=== PATIENT | female | born 1965 | race Caucasian/White ===

== ENCOUNTER 2016-12-13 09:43 | Outpatient (CLI) | payer OTHER ==
--- NOTE | 2016-12-14 16:54 | Mammography Report ---
DIGITAL SCREENING MAMMOGRAM: 12/13/2016 CLINICAL INDICATION: A 51-year-old, for screening. COMPARISON: 11/2015, 01/2014, 03/2012, 07/2010. TECHNIQUE: Routine CC and MLO projections were obtained of the breasts. FINDINGS: Parenchymal tissue within both breasts is heterogeneously dense, which may lower the sensi tivity of mammography; however, there are no dominant masses, suspicious microcalcifications, or seco ndary signs of malignancy. In comparison to the previous studies, there are no significant changes. ASSESSMENT: NO MAMMOGRAPHIC EVIDENCE OF MALIGNANCY. NO SIGNIFICANT INTERVAL CHANGES. RECOMMENDATION: Screening mammography is recommended annually. BIRADS category 1 - negative. STANDARD QUALIFYING STATEMENTS 1. This examination was reviewed with the aid of Computed-Aided Detection (CAD). 2. A negative or benign imaging report should not delay biopsy if clinically suspicious findings are present. Consider surgical consultation if warranted. More than 5% of cancers are not identified by i maging. 3. Dense breasts may obscure an underlying neoplasm. JOB #: [id number] EXT JOB #:[id number]
== END 2016-12-13 09:44 | disposition home or self-care (01) ==
LOC: DI 09:43
PROVIDERS: ATTEND Physician Assistant Medical
DX: Z12.31 Encounter for screening mammogram for malignant neoplasm of breast (principal)
CPT/HCPCS: 77067

== ENCOUNTER 2017-12-10 14:08 | Outpatient (CLI) | payer OTHER ==
[2017-12-10 14:41] LABS: BASOPHILS % (AUTO) 0.5 %; EOSINOPHILS # (AUTO) 0.3 10^3/uL (0.0-0.7); EOSINOPHILS % (AUTO) 3.3 %; HGB - HEMOGLOBIN 12.9 g/dL (12.0-16.0); LYMPHOCYTES # (AUTO) 2.3 10^3/uL (1.5-3.5); LYMPHOCYTES % (AUTO) 30.1 %; MEAN CORPUSCULAR HEMOGLOBIN 28.8 pg (27.0-31.0); MEAN CORPUSCULAR HGB CONC 33.3 g/dL (32.0-36.0); MEAN CORPUSCULAR VOLUME 86.6 fL (81.0-99.0); MEAN PLATELET VOLUME 7.1 fL (7.9-10.8); MONOCYTES # (AUTO) 0.7 10^3/uL (0.0-1.0); MONOCYTES % (AUTO) 8.4 %; NEUTROPHILS # (AUTO) 4.5 10^3/uL (1.5-6.6); NEUTROPHILS % (AUTO) 57.7 %; PLT - PLATELET COUNT 336 10^3/uL (130-450); RED BLOOD COUNT 4.47 10^6/uL (4.20-5.40); RED CELL DISTRIBUTION WIDTH 13.4 % (12.0-15.0); WHITE BLOOD COUNT 7.7 x10^3/uL (4.8-10.8)
[2017-12-10 15:02] LABS: ALBUMIN 3.9 g/dL (3.2-5.5); BILIRUBIN,DIRECT 0.1 mg/dL (0.1-0.5); BILIRUBIN,TOTAL 0.4 mg/dL (0.2-1.0); CREATININE 0.7 mg/dL (0.4-1.0); TOTAL PROTEIN 7.5 g/dL (6.7-8.2)
== END 2017-12-10 14:09 | disposition home or self-care (01) ==
LOC: LAB 14:08
PROVIDERS: ATTEND Podiatrist
DX: B35.1 Tinea unguium (principal); B35.3 Tinea pedis
CPT/HCPCS: 36415; 80076; 82565; 84520; 85025

== ENCOUNTER 2017-12-25 16:44 | Outpatient (CLI) | payer OTHER | END 2017-12-25 16:45 | disposition home or self-care (01) | LOC: RT 16:44 | PROVIDERS: ATTEND Physician Assistant Medical | DX: I47.1 Supraventricular tachycardia (principal); Z79.899 Other long term (current) drug therapy | CPT/HCPCS: 93005 ==

== ENCOUNTER 2018-01-13 10:44 | Outpatient (CLI) | payer OTHER ==
[2018-01-13 11:14] LABS: BASOPHILS # (AUTO) 0.1 10^3/uL (0.0-0.1); BASOPHILS % (AUTO) 0.8 %; EOSINOPHILS # (AUTO) 0.2 10^3/uL (0.0-0.7); EOSINOPHILS % (AUTO) 3.3 %; HGB - HEMOGLOBIN 13.8 g/dL (12.0-16.0); LYMPHOCYTES # (AUTO) 1.9 10^3/uL (1.5-3.5); LYMPHOCYTES % (AUTO) 27.9 %; MEAN CORPUSCULAR HEMOGLOBIN 29.1 pg (27.0-31.0); MEAN CORPUSCULAR HGB CONC 33.8 g/dL (32.0-36.0); MEAN CORPUSCULAR VOLUME 86.1 fL (81.0-99.0); MEAN PLATELET VOLUME 7.1 fL (7.9-10.8); MONOCYTES # (AUTO) 0.4 10^3/uL (0.0-1.0); MONOCYTES % (AUTO) 6.5 %; NEUTROPHILS # (AUTO) 4.2 10^3/uL (1.5-6.6); NEUTROPHILS % (AUTO) 61.5 %; PLT - PLATELET COUNT 356 10^3/uL (130-450); RED BLOOD COUNT 4.75 10^6/uL (4.20-5.40); RED CELL DISTRIBUTION WIDTH 13.2 % (12.0-15.0); WHITE BLOOD COUNT 6.9 x10^3/uL (4.8-10.8)
[2018-01-13 11:33] LABS: ALBUMIN 4.1 g/dL (3.2-5.5); ALBUMIN/GLOBULIN RATIO 1.1 (1.0-2.2); ALKALINE PHOSPHATASE 80 IU/L (42-121); ALT ALANINE AMINOTRANSFERASE 18 IU/L (10-60); AST ASPARTATE AMINOTRANSFERASE 24 IU/L (10-42); BILIRUBIN,TOTAL 0.5 mg/dL (0.2-1.0); BUN - BLOOD UREA NITROGEN 17 mg/dL (6-20); CALCIUM 9.1 mg/dL (8.5-10.3); CARBON DIOXIDE - CO2 25 mmol/L (21-32); CHLORIDE 103 mmol/L (101-111); CHOLESTEROL 196 mg/dL; CREATININE 0.6 mg/dL (0.4-1.0); GFR - MDRD 105 (>89); GLUCOSE 102 mg/dL (70-100); HDL CHOLESTEROL 66 mg/dL; LDL CHOLESTEROL,CALCULATED 119 mg/dL; LDL/HDL RATIO 1.8 (<4.4); SODIUM 137 mmol/L (135-145); VLDL CHOLESTEROL 11 mg/dL
[2018-01-15 08:47] LABS: HEPATITIS C ANTIBODY NON-REACTIVE (NON-REACTIVE)
== END 2018-01-13 10:45 | disposition home or self-care (01) ==
LOC: LAB 10:44
PROVIDERS: ATTEND Physician Assistant Medical
DX: Z00.00 Encounter for general adult medical examination without abnormal findings (principal); E03.9 Hypothyroidism, unspecified; Z11.59 Encounter for screening for other viral diseases; Z72.89 Other problems related to lifestyle; Z79.899 Other long term (current) drug therapy
CPT/HCPCS: 36415; 80053; 80061; 83721; 84443; 85025; 86803

== ENCOUNTER 2018-01-23 09:02 | Outpatient (CLI) | payer OTHER ==
--- NOTE | 2018-01-24 17:44 | Mammography Report ---
DIGITAL SCREENING MAMMOGRAM: 01/23/2018 CLINICAL INDICATION: A 52-year-old for screening. COMPARISON: 12/2016, 11/2015, 01/2014, 03/2012, 07/2010. TECHNIQUE: Routine CC and MLO projections were obtained of the breasts. FINDINGS: The breasts demonstrate scattered fibroglandular densities bilaterally. Punctate, typically benign calcifications are present. No suspicious masses, clustered microcalcifications, or regions of architectural distortion are identified. IMPRESSION: BENIGN FINDINGS. RECOMMENDATION: Routine annual screening unless otherwise clinically indicated. BIRADS CATEGORY 2 benign findings. STANDARD QUALIFYING STATEMENTS 1. This examination was reviewed with the aid of Computed-Aided Detection (CAD). 2. A negative or benign imaging report should not delay biopsy if clinically suspicious findings are present. Consider surgical consultation if warranted. More than 5% of cancers are not identified by imaging. 3. Dense breasts may obscure an underlying neoplasm. TD: 01/24/2018 17:43
== END 2018-01-23 09:03 | disposition home or self-care (01) ==
LOC: DI 09:02
PROVIDERS: ATTEND Physician Assistant Medical
DX: Z12.31 Encounter for screening mammogram for malignant neoplasm of breast (principal)
CPT/HCPCS: 77067

== ENCOUNTER 2018-03-22 09:21 | Outpatient (CLI) | payer OTHER | END 2018-03-22 09:22 | disposition home or self-care (01) | LOC: LAB 09:21 | PROVIDERS: ATTEND Physician Assistant Medical | DX: E03.9 Hypothyroidism, unspecified (principal); Z79.899 Other long term (current) drug therapy | CPT/HCPCS: 36415; 84443 ==

== ENCOUNTER 2018-04-30 16:42 | Outpatient (CLI) | payer OTHER ==
[2018-04-30 17:02] LABS: BASOPHILS # (AUTO) 0.1 10^3/uL (0.0-0.1); BASOPHILS % (AUTO) 0.9 %; EOSINOPHILS # (AUTO) 0.3 10^3/uL (0.0-0.7); EOSINOPHILS % (AUTO) 3.5 %; HGB - HEMOGLOBIN 13.2 g/dL (12.0-16.0); LYMPHOCYTES % (AUTO) 27.6 %; MEAN CORPUSCULAR HEMOGLOBIN 28.9 pg (27.0-31.0); MEAN CORPUSCULAR HGB CONC 32.6 g/dL (32.0-36.0); MEAN CORPUSCULAR VOLUME 88.7 fL (81.0-99.0); MEAN PLATELET VOLUME 7.7 fL (7.9-10.8); MONOCYTES # (AUTO) 0.7 10^3/uL (0.0-1.0); MONOCYTES % (AUTO) 9.7 %; NEUTROPHILS # (AUTO) 4.2 10^3/uL (1.5-6.6); NEUTROPHILS % (AUTO) 58.3 %; PLT - PLATELET COUNT 362 10^3/uL (130-450); RED BLOOD COUNT 4.58 10^6/uL (4.20-5.40); RED CELL DISTRIBUTION WIDTH 13.9 % (12.0-15.0); WHITE BLOOD COUNT 7.3 x10^3/uL (4.8-10.8)
[2018-04-30 17:15] LABS: ALBUMIN 3.8 g/dL (3.2-5.5); ALKALINE PHOSPHATASE 89 IU/L (42-121); ALT ALANINE AMINOTRANSFERASE 21 IU/L (10-60); AST ASPARTATE AMINOTRANSFERASE 28 IU/L (10-42); BILIRUBIN,TOTAL 0.4 mg/dL (0.2-1.0); BUN - BLOOD UREA NITROGEN 13 mg/dL (6-20); CREATININE 0.8 mg/dL (0.4-1.0); GFR - MDRD 75 (>89)
[2018-04-30 17:21] LABS: BILIRUBIN,DIRECT < 0.1 mg/dL (0.1-0.5)
== END 2018-04-30 16:43 | disposition home or self-care (01) ==
LOC: LAB 16:42
PROVIDERS: ATTEND Podiatrist
DX: E03.9 Hypothyroidism, unspecified (principal); Z79.899 Other long term (current) drug therapy; B35.1 Tinea unguium; B35.3 Tinea pedis
CPT/HCPCS: 36415; 80076; 82565; 84443; 84520; 85025

== ENCOUNTER 2018-05-01 16:56 | Outpatient (CLI) | payer OTHER ==
[2018-05-01 17:27] LABS: CRP - C-REACTIVE PROTEIN 1.6 mg/dL (0-1.0)
== END 2018-05-01 16:57 | disposition home or self-care (01) ==
LOC: LAB 16:56
PROVIDERS: ATTEND Physician Assistant Medical
DX: R10.84 Generalized abdominal pain (principal)
CPT/HCPCS: 36415; 83690; 85651; 86140

== ENCOUNTER 2018-08-12 12:30 | Outpatient (CLI) | payer OTHER ==
--- NOTE | 2018-08-12 15:36 | XRAY Report ---
Reason: CERVICAL RADICULOPATHY LEFT Procedure Date: 08/12/2018 Accession Number: [id number] / [id number] Procedure: XR - Cervical Spine Complete CPT Code: FULL RESULT: EXAM: CERVICAL SPINE RADIOGRAPHY EXAM DATE: 08/12/2018 12:56 PM. CLINICAL HISTORY: Cervical radiculopathy, left. COMPARISONS: None. TECHNIQUE: 5 views. FINDINGS: Alignment: Normal. No spondylolisthesis or scoliosis. Bones: The cervical vertebral bodies and posterior elements are well-visualized from the skull base through C7-T1. No fractures or bone lesions. Disks: Normal. Disk heights are maintained. Facets: No degenerative disease. Neural Foramina: The neural foramina have bony patency bilaterally. Soft Tissues: Normal. No prevertebral soft tissue swelling. The visualized lung apices are clear. IMPRESSION: Normal cervical spine radiography. RADIA
--- NOTE | 2018-08-12 15:36 | XRAY Report ---
Reason: SACRAL RADICULOPATHY, CERVICAL RADICULOPAHTY, LEFT Procedure Date: 08/12/2018 Accession Number: [id number] / [id number] Procedure: XR - Sacrum/Coccyx CPT Code: FULL RESULT: EXAM: SACRUM AND COCCYX RADIOGRAPHY EXAM DATE: 08/12/2018 12:56 PM. HISTORY: Sacral radiculopathy, cervical radiculopathy, left. COMPARISONS: None. TECHNIQUE: 2 views. FINDINGS: Alignment: Normal. The sacrum and coccyx are normally aligned. Bones: Normal. No fracture or bone lesion. Joints: Normal. The sacroiliac joints and visualized hips are within normal limits. Soft Tissues: Unremarkable. IMPRESSION: Normal sacrum and coccyx radiography. RADIA
== END 2018-08-12 12:31 | disposition home or self-care (01) ==
LOC: DI 12:30
PROVIDERS: ATTEND Nurse Practitioner Primary Care
DX: M54.12 Radiculopathy, cervical region (principal); M54.18 Radiculopathy, sacral and sacrococcygeal region
CPT/HCPCS: 72050; 72220

== ENCOUNTER 2018-10-30 14:45 | Outpatient (CLI) | payer OTHER | END 2018-10-30 23:59 | disposition home or self-care (01) | LOC: LAB.R 14:45 | PROVIDERS: ATTEND Nurse Practitioner Primary Care | DX: R21 Rash and other nonspecific skin eruption (principal) | CPT/HCPCS: 87070; 87205 ==

== ENCOUNTER 2019-01-28 16:15 | Outpatient (CLI) | payer BC, OTHER | END 2019-01-28 23:59 | disposition home or self-care (01) | LOC: LAB.R 16:15 | PROVIDERS: ATTEND Physician Assistant | DX: R06.02 Shortness of breath (principal) | CPT/HCPCS: 87275; 87276 ==

== ENCOUNTER 2019-06-11 06:35 | Outpatient (CLI) | payer BC ==
[2019-06-11 06:50] LABS: BASOPHILS % (AUTO) 0.4 %; EOSINOPHILS # (AUTO) 0.2 10^3/uL (0.0-0.7); EOSINOPHILS % (AUTO) 2.6 %; HGB - HEMOGLOBIN 13.3 g/dL (12.0-16.0); LYMPHOCYTES # (AUTO) 1.8 10^3/uL (1.5-3.5); LYMPHOCYTES % (AUTO) 25.3 %; MEAN CORPUSCULAR HEMOGLOBIN 28.4 pg (27.0-31.0); MEAN CORPUSCULAR VOLUME 88.5 fL (81.0-99.0); MEAN PLATELET VOLUME 9.4 fL (7.9-10.8); MONOCYTES # (AUTO) 0.6 10^3/uL (0.0-1.0); MONOCYTES % (AUTO) 8.2 %; NEUTROPHILS # (AUTO) 4.4 10^3/uL (1.5-6.6); NEUTROPHILS % (AUTO) 63.2 %; PLT - PLATELET COUNT 306 10^3/uL (130-450); RED BLOOD COUNT 4.69 10^6/uL (4.20-5.40); RED CELL DISTRIBUTION WIDTH 13.2 % (12.0-15.0)
[2019-06-11 07:10] LABS: ALBUMIN 3.9 g/dL (3.2-5.5); ALBUMIN/GLOBULIN RATIO 1.1 (1.0-2.2); ALKALINE PHOSPHATASE 84 IU/L (42-121); ALT ALANINE AMINOTRANSFERASE 24 IU/L (10-60); AST ASPARTATE AMINOTRANSFERASE 27 IU/L (10-42); BILIRUBIN,TOTAL 0.7 mg/dL (0.2-1.0); BUN - BLOOD UREA NITROGEN 19 mg/dL (6-20); CARBON DIOXIDE - CO2 27 mmol/L (21-32); CHLORIDE 102 mmol/L (101-111); CHOL/HDL RATIO 3.3 (<4.4); CHOLESTEROL 189 mg/dL; CREATININE 0.7 mg/dL (0.4-1.0); GFR - MDRD 87 (>89); GLUCOSE 114 mg/dL (70-100); HDL CHOLESTEROL 58 mg/dL; LDL CHOLESTEROL,CALCULATED 113 mg/dL; LDL/HDL RATIO 1.9 (<4.4); SODIUM 138 mmol/L (135-145); TOTAL PROTEIN 7.6 g/dL (6.7-8.2); VLDL CHOLESTEROL 18 mg/dL
== END 2019-06-11 06:36 | disposition home or self-care (01) ==
LOC: LAB 06:35
PROVIDERS: ATTEND Nurse Practitioner
DX: Z00.00 Encounter for general adult medical examination without abnormal findings (principal); R73.9 Hyperglycemia, unspecified; E03.9 Hypothyroidism, unspecified
CPT/HCPCS: 36415; 80053; 80061; 83721; 84443; 85025

== ENCOUNTER 2020-08-30 15:10 | Outpatient (CLI) | payer BC | END 2020-08-30 15:11 | disposition home or self-care (01) | LOC: COV 15:10 | PROVIDERS: ATTEND Nurse Practitioner | DX: Z20.828 Contact with and (suspected) exposure to other viral communicable diseases (principal) ==

== ENCOUNTER 2020-10-07 10:05 | Outpatient (CLI) | payer BC | END 2020-10-07 23:59 | disposition home or self-care (01) | LOC: LAB.R 10:05 | PROVIDERS: ATTEND Physician Assistant Medical | DX: J01.00 Acute maxillary sinusitis, unspecified (principal); Z20.828 Contact with and (suspected) exposure to other viral communicable diseases | CPT/HCPCS: 87275; 87276 ==

== ENCOUNTER 2020-10-09 08:04 | Emergency (ER) | payer BC ==
[2020-10-09] MEDS ORDERED: PROCAINAMIDE 1,000 MG in SODIUM CHLORIDE 0.9% 240 ML IV STA (08:26)
[2020-10-09] MEDS ORDERED: diltiaZEM INJ 5 MG/ML VIAL ONE (08:28)
[2020-10-09 08:37] LABS: BASOPHILS # (AUTO) 0.1 10^3/uL (0.0-0.1); BASOPHILS % (AUTO) 0.5 %; EOSINOPHILS # (AUTO) 0.3 10^3/uL (0.0-0.7); EOSINOPHILS % (AUTO) 3.1 %; HGB - HEMOGLOBIN 14.8 g/dL (12.0-16.0); LYMPHOCYTES # (AUTO) 2.9 10^3/uL (1.5-3.5); LYMPHOCYTES % (AUTO) 31.9 %; MEAN CORPUSCULAR HEMOGLOBIN 27.5 pg (27.0-31.0); MEAN CORPUSCULAR HGB CONC 32.3 g/dL (32.0-36.0); MEAN CORPUSCULAR VOLUME 85.1 fL (81.0-99.0); MEAN PLATELET VOLUME 9.5 fL (7.9-10.8); MONOCYTES % (AUTO) 10.4 %; NEUTROPHILS # (AUTO) 4.9 10^3/uL (1.5-6.6); NEUTROPHILS % (AUTO) 53.8 %; PLT - PLATELET COUNT 387 10^3/uL (130-450); RED BLOOD COUNT 5.38 10^6/uL (4.20-5.40); RED CELL DISTRIBUTION WIDTH 12.9 % (12.0-15.0); WHITE BLOOD COUNT 9.1 x10^3/uL (4.8-10.8)
--- NOTE | 2020-10-09 08:44 | XRAY Report ---
PROCEDURE: Chest 1 View X-Ray INDICATIONS: Chest Pain TECHNIQUE: One view of the chest was acquired. COMPARISON: None FINDINGS: Surgical changes and devices: None. Lungs and pleura: No pleural effusions or pneumothorax. Lungs are clear. Mediastinum: Mediastinal contours appear normal. Heart size is normal. Bones and chest wall: No suspicious bony lesions. Mild, age-appropriate degenerative changes are see n. Overlying soft tissues appear unremarkable. IMPRESSION: Portable chest within normal limits for age. Reviewed by: Felipe Valerio MD on 10/09/2020 7:42 AM [facility] Approved by: Felipe Valerio MD on 10/09/2020 7:42 AM [facility] Station ID: [id number]
[2020-10-09 08:53] LABS: ALBUMIN 3.9 g/dL (3.2-5.5); BILIRUBIN,TOTAL 0.8 mg/dL (0.2-1.0); CALCIUM 9.3 mg/dL (8.5-10.3); CREATININE 0.6 mg/dL (0.4-1.0); TOTAL PROTEIN 7.9 g/dL (6.7-8.2)
[2020-10-09 08:56] LABS: INR 1.2 (0.8-1.2); PT - PROTHROMBIN TIME 13.4 secs (9.9-12.6)
[2020-10-09 09:04] LABS: PARTIAL THROMBOPLASTIN TIME 32.1 secs (24.9-33.3)
--- NOTE | 2020-10-09 09:44 | ED Physician Documentation ---
PD HPI CHEST PAIN - Stated complaint Stated Complaint: CHEST PX - Chief complaint Chief Complaint: Cardiac - History obtained from History obtained from: Patient - Additional information Additional information: 55-year-old woman with history of SVT and high blood pressure presents with heart palpitations associated with chest tightness that is mild, substernal, nonradiating, aching constant, without exacerbating or relieving factors. Patient does states she has been under a lot of stress this week. Denies fever, shortness of breath, nausea, diaphoresis, abdominal pain, urinary symptoms, rash or back pain. No leg swelling. 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 HEENT: Tonsil/Adenoidectomy - Present Medications Home Medications: Ambulatory Orders Medication Instructions Recorded Confirmed Cyclobenzaprine [Flexeril] 5 mg ORAL DAILY PRN 02/22/15 10/09/20 Fluticasone [Flonase] 1 spray INH DAILY 02/22/15 10/09/20 Levothyroxine [Synthroid] 88 mcg ORAL DAILY 02/22/15 10/09/20 Magnesium Chloride [Slo Mag] 64 mg ORAL DAILY 02/22/15 10/09/20 Metoprolol Succinate 50 mg ORAL DAILY 02/22/15 10/09/20 Omeprazole [Prilosec] 20 mg ORAL DAILY 02/22/15 10/09/20 hydroCHLOROthiazide 12.5 mg PO DAILY 02/27/16 10/09/20 [Hydrochlorothiazide] Apixaban [Eliquis] 5 mg PO BID 30 Days #60 tablet 10/09/20 - Allergies Allergies/Adverse Reactions: Allergies Allergy/AdvReac Type Severity Reaction Status Date / Time latex Allergy Rash Verified 10/09/20 08:16 meloxicam [From Mobic] AdvReac Cramps Verified 10/09/20 08:16 - Social History Does the pt smoke?: No Smoking Status: Never smoker Does the pt drink ETOH?: Yes Does the pt have substance abuse?: No - Immunizations Immunizations are current?: Yes PD ED PE NORMAL - Vitals Vital signs reviewed: Yes - General General: Alert and oriented X 3 - HEENT HEENT: Atraumatic, PERRL, EOMI - Neck Neck: Supple, no meningeal sign - Cardiac Cardiac: Other (Tachycardic rate, irregular rhythm) - Respiratory Respiratory: No respiratory distress, Clear bilaterally - Abdomen Abdomen: Normal bowel sounds, Non tender, Non distended - Female Female : Deferred - Rectal Rectal: Deferred - Back Back: Other (No deformity) - Derm Derm: Normal color, Warm and dry - Extremities Extremities: No deformity - Neuro Neuro: Alert and oriented X 3 - Psych Psych: Normal mood, Normal affect Results - Vitals Vitals: Vital Signs - 24 hr 10/09/20 10/09/20 10/09/20 08:12 08:27 08:41 Temperature 36.3 C L Heart Rate 164 H 144 H 151 H Respiratory 21 20 16 Rate Blood Pressure 154/105 H 124/104 H 125/94 H O2 Saturation 98 98 97 10/09/20 10/09/20 10/09/20 09:00 09:11 09:38 Temperature Heart Rate 139 H 136 H 90 Respiratory 16 16 16 Rate Blood Pressure 128/90 H 113/75 122/89 H O2 Saturation 98 98 98 Oxygen O2 Source Room air - EKG (time done) 0808 Rate: Rate (enter#) (162) Rhythm: Atrial fibrillation 0932 Rate: Rate (enter#) (85) Rhythm: NSR [place]: Normal Intervals: Normal [place] QRS: Normal Ischemia: Normal ST segments - Labs Labs: Laboratory Tests 10/09/20 10/09/20 10/09/20 08:15 08:15 08:15 WBC 9.1 RBC 5.38 Hgb 14.8 Hct 45.8 MCV 85.1 MCH 27.5 MCHC 32.3 RDW 12.9 Plt Count 387 MPV 9.5 Neut # (Auto) 4.9 Lymph # (Auto) 2.9 [place] # (Auto) 1.0 Eos # (Auto) 0.3 Baso # (Auto) 0.1 Absolute Nucleated RBC 0.00 Nucleated RBC % 0.0 PT INR APTT Sodium 138 Potassium 3.7 Chloride 99 L Carbon Dioxide 24 Anion Gap 15.0 H BUN 13 Creatinine 0.6 Estimated GFR (MDRD) 104 Glucose 129 H Calcium 9.3 Total Bilirubin 0.8 AST 26 ALT 22 Alkaline Phosphatase 96 Troponin I High Sens 11.8 Total Protein 7.9 Albumin 3.9 Globulin 4.0 Albumin/Globulin Ratio 1.0 Lipase 27 10/09/20 08:15 WBC RBC Hgb Hct MCV MCH MCHC RDW Plt Count MPV Neut # (Auto) Lymph # (Auto) [place] # (Auto) Eos # (Auto) Baso # (Auto) Absolute Nucleated RBC Nucleated RBC % PT 13.4 H INR 1.2 APTT 32.1 Sodium Potassium Chloride Carbon Dioxide Anion Gap BUN Creatinine Estimated GFR (MDRD) Glucose Calcium Total Bilirubin AST ALT Alkaline Phosphatase Troponin I High Sens Total Protein Albumin Globulin Albumin/Globulin Ratio Lipase PD MEDICAL DECISION MAKING - ED course Complexity details: reviewed results, re-evaluated patient, d/w patient ED course: 55-year-old woman with past medical history of high blood pressure ([id number] 2 of 2) presented with new onset atrial fibrillation with RVR that she believes started at 3am today. Patient appears to be low risk for pulmonary embolism, without history of personal blood clots, coagulopathy, recent travel or surgery, leg swelling, cough or hemoptysis, pleurisy or shortness of breath, not on estrogen. 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 She has converted to normal sinus rhythm with IV procainamide, Her symptoms have now resolved and she is planning on following up with a director financial planning in [place]. Departure - Departure Disposition: 01 Home, Self Care Clinical Impression: Atrial fibrillation with RVR, Heart palpitations, Anxiety Condition: Good Instructions: Atrial Fibrillation Dc Prescriptions: Apixaban [Eliquis] 5 mg PO BID 30 Days #60 tablet Comments: It was very nice to meet you today! You have been seen in the emergency department for new onset atrial fibrillation with RVR. Because Your symptoms started only a few hours ago, we were able to converted into a normal sinus rhythm with procainamide, an IV antiarrhythmic medication. You should take Eliquis as prescribed for prevention of clot formation in the heart. Follow-up with your primary doctor and a director financial planning about this. Return to the ED for any new or worsening symptoms.
[2020-10-09 09:52] VITALS: BP 122/84
== END 2020-10-09 09:51 | disposition home or self-care (01) ==
LOC: ED 08:04
DX: I48.91 Unspecified atrial fibrillation (principal); F41.9 Anxiety disorder, unspecified; I10 Essential (primary) hypertension
CPT/HCPCS: 36415; 71045; 80053; 83690; 84484; 85025; 85610; 85730; 93005; 96365; 99285; J2690

== ENCOUNTER 2021-01-10 15:39 | Outpatient (CLI) | payer BC ==
--- NOTE | 2021-01-11 11:34 | Mammography Report ---
BILATERAL DIGITAL SCREENING MAMMOGRAM 3D/2D: 01/10/2021 CLINICAL: Routine screening. Comparison is made to exams dated: 01/23/2018 mammogram, 12/13/2016 mammogram, 11/12/2015 mammogram - [facility], 01/13/2014 mammogram, 03/26/2012 mammogram, and [facility]/26/[facility]. The tissue of both breasts is heterogeneously dense. This may lower the sens itivity of mammography. No significant masses, calcifications, or other findings are seen in either breast. There has been no significant interval change. IMPRESSION: NEGATIVE There is no mammographic evidence of malignancy. A 1 year screening mammogram is recommended. This exam was interpreted at Station ID: [id number]. NOTE: For mammograms, a report in lay terms will be sent to the patient. Approximately 15% of breast malignancies will not be visualized mammographically. In the management of a palpable breast mass, a negative mammogram must not discourage biopsy of a clinically suspicious lesion. Electronically Signed By: Laz Gallardo M.D. [email or web address]/mimi:01/10/2021 16:34:38 ACR BI-RADS Category 1: Negative 3341F PARENCHYMAL PATTERN: (D) - The breast(s) demonstrate(s) heterogeneously dense fibroglandular malik fischer. BI-RADS CATEGORY: (1) - 1 RECOMMENDATION: (ANNUAL) - Recommend routine annual screening mammography. [id number] 1 year screening LATERALITY: (B)
== END 2021-01-10 15:40 | disposition home or self-care (01) ==
LOC: DI.N 15:39
DX: Z12.31 Encounter for screening mammogram for malignant neoplasm of breast (principal)

== ENCOUNTER 2021-02-01 07:14 | Outpatient (CLI) | payer BC ==
[2021-02-01 07:47] LABS: BUN - BLOOD UREA NITROGEN 17 mg/dL (6-20); CALCIUM 9.7 mg/dL (8.5-10.3); CARBON DIOXIDE - CO2 25 mmol/L (21-32); CHLORIDE 102 mmol/L (101-111); CHOL/HDL RATIO 3.2 (<4.4); CHOLESTEROL 190 mg/dL; CREATININE 0.6 mg/dL (0.4-1.0); GFR - MDRD 104 (>89); GLUCOSE 124 mg/dL (70-100); HDL CHOLESTEROL 59 mg/dL; LDL CHOLESTEROL,CALCULATED 121 mg/dL; LDL/HDL RATIO 2.1 (<4.4); POTASSIUM 4.3 mmol/L (3.5-5.0); SODIUM 138 mmol/L (135-145); TRIGLYCERIDES 48 mg/dL; VLDL CHOLESTEROL 10 mg/dL
== END 2021-02-01 07:15 | disposition home or self-care (01) ==
LOC: LAB 07:14
PROVIDERS: ATTEND Internal Medicine Cardiovascular Disease
DX: I48.0 Paroxysmal atrial fibrillation (principal); I10 Essential (primary) hypertension
CPT/HCPCS: 36415; 80048; 80061; 83721; 83735; 84443

== ENCOUNTER 2021-04-28 15:25 | Outpatient (CLI) | payer BC ==
[2021-04-28 16:31] LABS: THYROID STIMULATING HORMONE 0.01 uIU/mL (0.34-5.60)
[2021-04-28 17:13] LABS: FREE T4 (FREE THYROXINE) 1.32 ng/dL (0.58-1.64)
== END 2021-04-28 15:26 | disposition home or self-care (01) ==
LOC: LAB 15:25
PROVIDERS: ATTEND Physician Assistant Medical
DX: E03.9 Hypothyroidism, unspecified (principal)
CPT/HCPCS: 36415; 84439; 84443

== ENCOUNTER 2021-10-22 22:43 | Emergency (ER) | payer BC ==
[2021-10-22 23:08] LABS: BASOPHILS % (AUTO) 0.4 %; EOSINOPHILS # (AUTO) 0.2 10^3/uL (0.0-0.7); EOSINOPHILS % (AUTO) 1.7 %; HCT - HEMATOCRIT 43.5 % (37.0-47.0); LYMPHOCYTES # (AUTO) 2.6 10^3/uL (1.5-3.5); LYMPHOCYTES % (AUTO) 26.9 %; MEAN CORPUSCULAR HEMOGLOBIN 28.3 pg (27.0-31.0); MEAN CORPUSCULAR HGB CONC 32.2 g/dL (32.0-36.0); MEAN CORPUSCULAR VOLUME 88.1 fL (81.0-99.0); MEAN PLATELET VOLUME 9.2 fL (7.9-10.8); MONOCYTES # (AUTO) 0.7 10^3/uL (0.0-1.0); MONOCYTES % (AUTO) 7.5 %; NEUTROPHILS # (AUTO) 6.1 10^3/uL (1.5-6.6); NEUTROPHILS % (AUTO) 63.3 %; PLT - PLATELET COUNT 317 10^3/uL (130-450); RED BLOOD COUNT 4.94 10^6/uL (4.20-5.40); RED CELL DISTRIBUTION WIDTH 13.1 % (12.0-15.0); WHITE BLOOD COUNT 9.7 x10^3/uL (4.8-10.8)
[2021-10-22] MEDS ORDERED: PROCAINAMIDE 1,000 MG in SODIUM CHLORIDE 0.9% 240 ML IV STA (23:12)
[2021-10-22] MEDS ORDERED: PROCAINAMIDE 1,000 MG/10 ML SYRINGE ONE (23:22)
[2021-10-22 23:26] LABS: ALBUMIN 4.4 g/dL (3.2-5.5); BILIRUBIN,TOTAL 0.5 mg/dL (0.2-1.0); CALCIUM 9.6 mg/dL (8.5-10.3); CREATININE 0.6 mg/dL (0.4-1.0); POTASSIUM 3.1 mmol/L (3.5-5.0); TOTAL PROTEIN 8.6 g/dL (6.7-8.2)
--- NOTE | 2021-10-22 23:30 | XRAY Report ---
PROCEDURE: Chest 1 View X-Ray INDICATIONS: Chest pain TECHNIQUE: One view of the chest was acquired. COMPARISON: 10/09/2020 FINDINGS: Surgical changes and devices: None. Lungs and pleura: No pleural effusions or pneumothorax. Lungs are clear. Mediastinum: Mediastinal contours appear normal. Heart size is normal. Bones and chest wall: No suspicious bony lesions. Overlying soft tissues appear unremarkable. IMPRESSION: No evidence acute pulmonary process. Reviewed by: Tomy Santana MD on 10/22/2021 11:28 PM [facility] Approved by: Tomy Santana MD on 10/22/2021 11:28 PM [facility] Station ID: [id number]
[2021-10-22] MEDS ORDERED: MAGNESIUM SULFATE 2 GRAM 2 GM/50 ML BAG IV ONE (23:44)
--- NOTE | 2021-10-23 02:22 | ED Physician Documentation ---
PD HPI CHEST PAIN - Stated complaint Stated Complaint: CHEST PX,AFIB - Chief complaint Chief Complaint: Cardiac - Additional information Additional information: Is a 51-year-old female with known history of paroxysmal A. fib on metoprolol and Eliquis presenting to the emergency department with elevated heart rate and chest pressure. Reports acute onset earlier this evening while bending over to arrange presents underneath her [place] tree. States had similar episode approximately 1 year ago that was aborted with IV procainamide. Requests that if at all possible she not undergo cardioversion. Review of Systems Constitutional: denies: Fever Eyes: denies: Loss of vision Ears: denies: Loss of hearing Nose: denies: Rhinorrhea / runny nose Throat: denies: Dental pain / toothache Cardiac: reports: Chest pain / pressure, Palpitations Respiratory: denies: Dyspnea GI: denies: Abdominal Pain, Nausea, Vomiting, Diarrhea : denies: Dysuria Musculoskeletal: denies: Neck pain Neurologic: denies: Generalized weakness Psychiatric: denies: Depressed PD PAST MEDICAL HISTORY - Past Medical History Cardiovascular: Other Respiratory: None Endocrine/Autoimmune: HyPOthyroidism GI: GERD HEENT: Chronic sinusitis Musculoskeletal: Chronic back pain - Past Surgical History 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 HEENT: Tonsil/Adenoidectomy - Present Medications Home Medications: Ambulatory Orders Medication Instructions Recorded Confirmed Cyclobenzaprine [Flexeril] 5 mg ORAL DAILY PRN 02/22/15 10/09/20 Fluticasone [Flonase] 1 spray INH DAILY 02/22/15 10/09/20 Levothyroxine [Synthroid] 88 mcg ORAL DAILY 02/22/15 10/09/20 Metoprolol Succinate 50 mg ORAL DAILY 02/22/15 10/09/20 Omeprazole [Prilosec] 20 mg ORAL DAILY 02/22/15 10/09/20 hydroCHLOROthiazide 12.5 mg PO DAILY 02/27/16 10/09/20 [Hydrochlorothiazide] Apixaban [Eliquis] 5 mg PO BID 30 Days #60 tablet 10/09/20 - Allergies Allergies/Adverse Reactions: Allergies Allergy/AdvReac Type Severity Reaction Status Date / Time latex Allergy Rash Verified 10/22/21 22:54 Penicillins Allergy Unknown Verified 10/22/21 22:54 meloxicam [From Mobic] AdvReac Cramps Verified 10/22/21 22:54 - Social History Does the pt smoke?: No Smoking Status: Never smoker Does the pt drink ETOH?: Yes Does the pt have substance abuse?: No - Immunizations Immunizations are current?: Yes PD ED PE NORMAL - Vitals Vital signs reviewed: Yes - General General: Alert and oriented X 3 - HEENT HEENT: Atraumatic - Neck Neck: Supple, no meningeal sign, No JVD, No bruit - Cardiac Cardiac: Other (Tachycardic irregularly irregular rhythm) - Respiratory Respiratory: No respiratory distress - Abdomen Abdomen: Normal bowel sounds, Non tender - Female Female : Deferred - Rectal Rectal: Deferred - Derm Derm: Normal color - Neuro Neuro: Alert and oriented X 3, patient liaison 2-12 intact, No motor deficit - Psych Psych: Normal mood Results - Vitals Vitals: Vital Signs - 24 hr 10/22/21 10/22/21 10/22/21 22:45 22:51 23:21 Temperature 36.9 C 36.9 C Heart Rate 145 H 145 H 130 H Respiratory 18 18 18 Rate Blood Pressure 140/95 H 140/95 H 140/95 H O2 Saturation 97 97 98 10/22/21 10/23/21 10/23/21 23:30 00:00 00:30 Temperature 36.5 C Heart Rate 116 H 130 H 135 H Respiratory 17 18 18 Rate Blood Pressure 122/88 H 155/90 H 111/77 O2 Saturation 98 98 99 10/23/21 10/23/21 10/23/21 01:00 01:30 02:39 Temperature Heart Rate 133 H 134 H 122 H Respiratory 18 16 19 Rate Blood Pressure 101/78 116/83 H 101/58 L O2 Saturation 99 100 97 10/23/21 10/23/21 10/23/21 04:04 04:08 04:10 Temperature Heart Rate 142 H 27 L 145 H Respiratory 17 20 20 Rate Blood Pressure 133/94 H 133/94 H 133/94 H O2 Saturation 96 97 97 10/23/21 10/23/21 10/23/21 04:11 04:13 04:16 Temperature 36.5 C Heart Rate 146 H 87 86 Respiratory 13 14 20 Rate Blood Pressure 133/94 H 96/78 107/85 H O2 Saturation 94 96 100 10/23/21 04:24 Temperature Heart Rate 80 Respiratory 14 Rate Blood Pressure 115/78 O2 Saturation 100 Oxygen O2 Source Room air - EKG (time done) 0951 Other comments: Other comments (Atrial fibrillation with rate 129 bpm. Normal axis. Normal [place], QRS, QTc intervals. No ST segment elevations or T wave inversions.) 6640 Rate: Rate (enter#) (85) Rhythm: NSR [place]: Normal Intervals: Normal [place], QRS normal QRS: Normal Ischemia: Normal ST segments Compare to prior EKG: Changed from prior EKG - Labs Labs: Laboratory Tests 10/22/21 10/22/21 10/22/21 22:54 22:54 22:54 WBC 9.7 RBC 4.94 Hgb 14.0 Hct 43.5 MCV 88.1 MCH 28.3 MCHC 32.2 RDW 13.1 Plt Count 317 MPV 9.2 Neut # (Auto) 6.1 Lymph # (Auto) 2.6 [place] # (Auto) 0.7 Eos # (Auto) 0.2 Baso # (Auto) 0.0 Absolute Nucleated RBC 0.00 Nucleated RBC % 0.0 Sodium 136 Potassium 3.1 L Chloride 99 L Carbon Dioxide 24 Anion Gap 13.0 BUN 14 Creatinine 0.6 Estimated GFR (MDRD) 103 Glucose 117 H Calcium 9.6 Total Bilirubin 0.5 AST 20 ALT 18 Alkaline Phosphatase 103 Troponin I High Sens 3.5 Total Protein 8.6 H Albumin 4.4 Globulin 4.2 Albumin/Globulin Ratio 1.0 Lipase 28 Procedures - Procedural sedation Sedation prep: Informed consent, Time out completed, Last meal, ASA 2 - mild disease, IV O2 monitor, ET CO2 monitor, RT present Sedation Medications: propofol Mallampati classification: II Patient status during sedation: Responds to tactile, Vitals remained stable, Maintained airway Sedation recovery: Back to baseline Time in sedation (Minutes): 5 - Cardioversion 1 Time of attempt: 04:10 Indication: Other (Failure of antiarrhythmic medications.) Risks, benefits, alternatives explained to: 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 Arrived in atrial fibrillation with rapid ventricular response. Comprehensive labs obtained demonstrated a mild hypokalemia and I did elect to replete electrolytes both potassium and magnesium empirically. Patient was extremely reticent to undergo cardioversion in the emergency department and chart review does demonstrate that in the past she has responded well to procainamide. She was observed in the emergency department for approximately 4 hours with an ongoing infusion of procainamide however this medication ultimately failed to elicit spontaneous conversion to sinus rhythm. After discussing the issue with the patient in detail she did consent for procedural sedation and cardioversion which was completed as outlined in the procedure note above. She was monitored continuously in the emergency department for approximately 1 hour after completion of the procedure and remained in sinus rhythm without any other acute complaint. At this time will discharge for follow-up with primary care as needed. Encourage patient to continue her metoprolol and Eliquis as previously prescribed. Otherwise clear return precautions and follow-up instructions given prior to discharge. - Critical Care Time(min): 31 Time Includes: Direct patient care, Review records, Reassess patient, See progress note Procedures included in critical care time: See progress note Procedures excluded from critical care time: EKG Departure - Departure Disposition: 01 Home, Self Care Clinical Impression: Atrial fibrillation with RVR, Hypokalemia Condition: Good Instructions: Atrial Fibrillation Dc Comments: Thank you for allowing us to care for you today at [facility]. . The cardioversion went extremely well. I would like you to continue your previously prescribed medications including your previously prescribed metoprolol and Eliquis. Please follow-up with your primary care doctor as needed. If it anytime you have any new or worsening symptoms please not hesitate to return to the emergency department.
[2021-10-23] MEDS ORDERED: PROPOFOL 200 MG/20 ML VIAL IVP STA (03:47)
[2021-10-23] MEDS ORDERED: fentaNYL 100 MCG/2 ML VIAL IVP STA (03:47)
[2021-10-23 04:53] VITALS: BP 111/80
== END 2021-10-23 06:06 | disposition home or self-care (01) ==
LOC: ED 22:43
DX: I48.0 Paroxysmal atrial fibrillation (principal); Z79.01 Long term (current) use of anticoagulants; E87.6 Hypokalemia
CPT/HCPCS: 36415; 71045; 80053; 83690; 84484; 85025; 92960; 93005; 96365; 96366; 96367; 96368; 96375; 96376; 99291; J2690; 94770

== ENCOUNTER 2022-02-20 08:55 | Outpatient (CLI) | payer BC ==
[2022-02-20 09:33] LABS: BUN - BLOOD UREA NITROGEN 14 mg/dL (6-20); CALCIUM 9.5 mg/dL (8.5-10.3); CARBON DIOXIDE - CO2 26 mmol/L (21-32); CHLORIDE 100 mmol/L (101-111); CHOLESTEROL 191 mg/dL; CREATININE 0.5 mg/dL (0.4-1.0); GFR - MDRD 128 (>89); GLUCOSE 111 mg/dL (70-100); HDL CHOLESTEROL 64 mg/dL; LDL CHOLESTEROL,CALCULATED 113 mg/dL; LDL/HDL RATIO 1.8 (<4.4); MAGNESIUM 1.9 mg/dL (1.7-2.8); POTASSIUM 3.8 mmol/L (3.5-5.0); SODIUM 136 mmol/L (135-145); TRIGLYCERIDES 70 mg/dL; VLDL CHOLESTEROL 14 mg/dL
== END 2022-02-20 08:56 | disposition home or self-care (01) ==
LOC: LAB 08:55
PROVIDERS: ATTEND Internal Medicine Cardiovascular Disease
DX: I10 Essential (primary) hypertension (principal)
CPT/HCPCS: 36415; 80048; 80061; 83721; 83735; 84443

== ENCOUNTER 2022-05-03 14:04 | Outpatient (CLI) | payer BC ==
[2022-05-03 14:58] VITALS: BP 128/80
--- NOTE | 2022-05-03 14:58 | SLEEP CARE CONSULTATION ---
Information from patient questionnaire entered by Malachi Easley MA. I have reviewed and concur with the information entered by Malachi Easley MA. This document represents the service I personally performed and the decisions made by , Dee Vilchis ARNP. History of Present Illness Service Date and Time: 05/03/2022 1404 Reason for Visit: New patient (ONSET 11/16/21), Other (ORDERED BY INK BLENDER) Chief Complaint: reports: Fatigue, Frequent awakenings at night Date of Onset: YEARS Usual bedtime: 9-10 PM Time it takes to fall asleep: 15-30 MINUTES Snores at night: Yes (very little) Observed to quit breathing while asleep: No Sleeps alone due to snoring: No Number of times waking at night: SEVERAL Reasons for waking at night: reports: Snoring (), Bathroom, Other (HOTFLASHES). denies: Choking, Gasping for air Toss, Turn, or Twitch while sleeping: Yes Recalls having dreams: Yes Usually gets out of bed at: [id number] VARIES Feels refreshed in the morning: No Morning headache: No Sleepy or fatigued during the day: Yes Ever fallen asleep while driving: No Takes day naps: No Prior sleep studies: No Additional HPI information: I had the pleasure of seeing GEOVANY SHAH today regarding the possibility of her having a sleep disorder. Her current complaints are fatigue and frequent night awakenings. She has been diagnosed with atrial fibrillation and started on Eliquis. She was sent by her top loader to rule out sleep apnea. - Parasomnia Symptoms Ever been unable to move upon waking from sleep: No Walks in sleep: No ( A CHILD) Talks in sleep: No ( A CHILD) Ever acted out dreams in sleep: Yes (happened as teenager) Ever felt weak in the knees when startled or emotional: No Bothered by creepy, crawly, restless sensations in legs: Yes (night relaxing in chair; not worse when laying down) Problems with memory or concentration: Yes (brain fog) Subjective Initial [place] Sleepiness Scale score: 8 (05/03/2022) Past Medical History Past Medical History: reports: Arrythmia (Atrial fibrillation; SVT), Hypothyroidism, GERD, Other (Hyperthyroidism) Social History 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 Patient is and lives in [place]. Have you smoked in the past 12 months: No Alcohol use: Yes Alcohol amount and frequency: 1-3 WEEKLY Caffeine use: Yes Caffeine amount and frequency: 1 X DAILY Family History Family history of sleep disordered breathing: No Family Hx Sleep Apnea: Father: Snoring, Sibling: Snoring Allergies and Home Medications Known drug allergies: Yes (MOBIC, LATEX) Drug allergies reviewed: Yes Home medication list reviewed: Yes Allergy and home medication list: Allergies latex Allergy (Verified 04/08/22 17:55) Rash Penicillins Allergy (Verified 04/08/22 17:55) Unknown meloxicam [From Mobic] Adverse Reaction (Verified 04/08/22 17:55) Cramps Medications: Eliquis 5 mg bid Metoprolol 50 mg AM, 25 mg PM Levothyroxine 12.5 mg daily HCTZ 12.5 mg daily, as needed Montelukast 10 mg PM Potassium 10 meq daily Restasis 1 gtt both eyes bid Omeprazole 20 mg Review of Systems Weight gain over past 5 years: 30 Cardiovascular: reports: palpitations, irregular heart rate or pulse, leg or foot swelling Respiratory: reports: wheeze, sputum production Gastrointestinal: reports: heartburn Neurological: denies: head trauma Psychiatric: reports: claustrophobia. denies: anxiety, depression Ear/Nose/Throat: reports: nasal congestion, sinus problems, dry mouth/throat, tonsillectomy, wisdom teeth removed Endocrine: reports: thyroid disease, history of goiter, sluggishness, too hot or cold, excessive thirst, increased appetite, increased urination, unexplained weakness Musculoskeletal: reports: joint pain, neck pain, back pain, muscle pain or cramping Immunologic: reports: sneezing, rash, itching, allergies to food or environment Physical Exam Vital signs obtained and entered by: Nimisha EASLEY CMA AAMA Blood Pressure: 128/80 (RESP 18, PULSE 82, LEFT) Cuff size: wrist Heart Rate: 82 O2 Saturation: 98 (PAPER MASK) Height: 5 ft 5 in Weight: 254 lb (CLOTHES) Body Mass Index: 42.3 BMI Classification: Morbidly Obese Neck circumference: 14.5 Mouth and throat: normal Soft palate: normal Hard palate: normal Uvula: normal Uvula visualization: 100% Mallampati Class I Tongue: enlarged in size with teeth hemphill on lateral edges Tonsils: absent bilaterally Heart: regular rate and rhythm Lungs: clear bilaterally Impression and Plan 1. Suspected Obstructive Sleep Apnea-Hypopnea Syndrome, as suggested by a history of irregular snoring, frequent awakening during the night, unrefreshed sleep and cognitive impairment. Narrow oropharynx and obesity are common predisposing factors for obstructive sleep apnea-hypopnea syndrome. I recommend proceeding to polysomnography to confirm the diagnosis and to assess severity. If the patient has significant sleep disordered breathing, a manual CPAP titration study will also be performed to find the optimal treatment pressure. I informed the patient of what the sleep studies involve and after some discussion, obtained agreement to proceed. The pathophysiology of obstructive sleep apnea-hypopnea syndrome was discussed with the patient and health risks of cardiovascular and cerebrovascular disease if not treated. Risks of drowsy driving discussed in detail and patient advised to avoid long distance driving and to farmworker pullet farm at the first sign of drowsiness. Patient agreed to plan. * Schedule polysomnography * Avoid long distance driving or driving when feeling sleepy. * Avoid alcohol, sedative and muscle relaxant around bedtime. * Attempt to lose weight. * Review instructions provided by trained office staff on how to prepare for the sleep study. * Return for follow-up after sleep study completed. Counseling Topics: Weight loss health impact Visit Type: In Office Time Spent with Patient (minutes): 32 Provider Statement: I spent 100% of the Face to Face Visit with the patient with greater than 50% spent counseling the patient and coordination of care.
== END 2022-05-03 14:05 | disposition home or self-care (01) ==
LOC: SC 14:04
PROVIDERS: ATTEND Nurse Practitioner Family
DX: G47.8 Other sleep disorders (principal); R06.83 Snoring; I49.9 Cardiac arrhythmia, unspecified; E66.01 Morbid (severe) obesity due to excess calories; Z68.41 Body mass index [BMI] 40.0-44.9, adult
CPT/HCPCS: 99203; 99212

== ENCOUNTER 2022-05-16 14:26 | Outpatient (CLI) | payer BC | END 2022-05-16 14:27 | disposition home or self-care (01) | LOC: SC 14:26 | PROVIDERS: ATTEND Nurse Practitioner Family | DX: G47.33 Obstructive sleep apnea (adult) (pediatric) (principal); R09.02 Hypoxemia | CPT/HCPCS: 95806 ==

== ENCOUNTER 2022-05-26 15:42 | Outpatient (CLI) | payer BC ==
--- NOTE | 2022-05-26 15:33 | SLEEP CARE CONSULTATION ---
Information from patient questionnaire entered by Malachi Mathur MA. I have reviewed and concur with the information entered by Malachi Mathur MA. This document represents the service I personally performed and the decisions made by Deng gomez Caren J, ARNP. History of Present Illness Service Date and Time: 05/26/2022 1520 Initial [place] Sleepiness Scale score: 8 (05/03/2022) Current [place] Sleepiness Scale score: 2 Additional HPI information: GEOVANY SHAH returns via video telehealth visit for follow up and results of the recently performed home sleep study. I explained the pathophysiology behind obstructive sleep apnea. We then spent quite a bit of time discussing different treatment options. For mild obstructive sleep apnea, surgery and oral appliance are alternatives to nasal CPAP therapy but in moderate or severe cases, nasal CPAP is the most effective and reliable treatment. I reviewed the impact of weight changes on sleep apnea and strongly recommended losing weight. Patient counseled not drink alcohol less than 4 hours before bedtime as it can increase snoring and apnea. Patient was cautioned about risks of drowsy driving until sleepiness symptoms resolve. Patient denies drowsy driving. Sleep Study - Results Type of Sleep Study: Home sleep study (F/U HST, 05/16/2022 [facility], POS DS,) Prior sleep studies: No Polysomnography/Home Sleep Study results: Physician Impression: The quality of the study is good. The length of the study is adequate (> 240 minutes). Please also see the tabulated and graphic data. 1. Obstructive Sleep Apnea-Hypopnea (ICD-10 G47.33), mild, with an AHI of 9.1/hr and jovana SaO2 of 77%. During the study, the patient had 17 apneas (17 obstructive, 0 central, 0 mixed) and 51 hypopneas. The longest episode lasted 60.5 seconds. The patient did not sleep supine during this study. 2. Hypoxemia (ICD-10 R09.02), moderate, with the lowest oxygen saturation of 77 % and 36.3 minutes with SaO2 under 90%. Baseline oxygen saturation was normal (Average oxygen saturation was 92%). Allergies and Home Medications Home medication list reviewed: Yes (no changes) Allergy and home medication list: Allergies latex Allergy (Verified 04/08/22 17:55) Rash Penicillins Allergy (Verified 06/04/22 17:55) Unknown meloxicam [From Mobic] Adverse Reaction (Verified 04/08/22 17:55) Cramps Review of Systems Review of systems same as previous: Yes (no changes) Physical Exam Vital signs obtained and entered by: DANIELE RINCON Height: 5 ft 5 in Weight: 252 lb (pt reported) Body Mass Index: 41.9 BMI Classification: Morbidly Obese Impression and Plan 1. Obstructive Sleep Apnea-Hypopnea Syndrome, mild, with lowest oxygen saturation of 77%. Obviously this is the cause of the patients symptoms of unrefreshed sleep, and excessive daytime sleepiness. Positive pressure therapy could benefit heart arrhythmia (Afib) and gastric reflux. The patient has problems with claustrophobia and does not think she can tolerate a CPAP mask. She chose to try an oral appliance to treat her apnea. A 3 month follow up will be made to see if appliance has reduced symptoms. If so, another polysomnography will be ordered with use of the oral appliance to check efficacy in reducing apnea. 2. Hypoxemia, moderate, with the lowest oxygen saturation of 77 % and 36.3 minutes with SaO2 under 90%. Her baseline oxygen saturation was normal with an average oxygen saturation of 92%. * Oral appliance * Attempt to lose weight. * Avoid alcohol consumption near bedtime. * Return one month after oral appliance obtained. I will assess response to therapy and order follow up PSG/HST at that time. Counseling Topics: Weight loss health impact Visit Type: Telehealth Video Video Type: Doximity Patient Location: Car Location of Provider: Office Patient agrees and consents to this telehealth visit type: Yes Patient agrees to have their insurance billed: Yes Time Spent with Patient (minutes): 20 Provider Statement: I spent 100% of the Telehealth Video Call with the patient with greater than 50% spent counseling the patient and coordination of care.
== END 2022-05-26 15:43 | disposition home or self-care (01) ==
LOC: SC 15:42
PROVIDERS: ATTEND Nurse Practitioner Family
DX: G47.33 Obstructive sleep apnea (adult) (pediatric) (principal); E66.01 Morbid (severe) obesity due to excess calories; Z68.41 Body mass index [BMI] 40.0-44.9, adult; R09.02 Hypoxemia

== ENCOUNTER 2022-07-17 07:17 | Outpatient (CLI) | payer BC ==
[2022-07-17 08:12] LABS: THYROID STIMULATING HORMONE 2.17 uIU/mL (0.34-5.60)
[2022-07-17 08:14] LABS: FREE T4 (FREE THYROXINE) 0.43 ng/dL (0.58-1.64)
== END 2022-07-17 07:18 | disposition home or self-care (01) ==
LOC: RT 07:17
PROVIDERS: ATTEND Internal Medicine
DX: I48.91 Unspecified atrial fibrillation (principal); E03.9 Hypothyroidism, unspecified; E66.01 Morbid (severe) obesity due to excess calories; Z68.41 Body mass index [BMI] 40.0-44.9, adult
CPT/HCPCS: 36415; 84439; 84443; 93005

== ENCOUNTER 2022-08-09 10:21 | Outpatient (CLI) | payer BC ==
[2022-08-09 10:52] VITALS: BP 136/92
--- NOTE | 2022-08-09 10:52 | SLEEP CARE CONSULTATION ---
Information from patient questionnaire entered by Loulou Amanda MA. I have reviewed and concur with the information entered by Loulou Amanda MA. This document represents the service I personally performed and the decisions made by Deng gomez Caren J, ARNP. History of Present Illness Service Date and Time: 08/09/2022 1021 Previous diagnosis: Mild, Obstructive Sleep Apnea-Hypopnea Syndrome AHI: 9.1 (in 2021) Reason for follow up: first compliance (setup 06/13/2022) Equipment type: CPAP (ResMed) Equipment obtained from: Other ([facility]; got inital supplies) Mask style: Nasal pillows (Dayton II) Backup mask available: No (will keep old mask when replaced) Last cushion change: 1 week Prior sleep studies: No Type of Sleep Study: Home sleep study (F/U HST, 05/16/2022 [facility], POS DS,) HPI additional information: GEOVANY SHAH was diagnosed to have mild, AHI 9.1, obstructive sleep apnea- hypopnea syndrome and returned today for CPAP therapy first compliance follow- up. Sleep Study - Results Type of Sleep Study: Home sleep study (F/U HST, 05/16/2022 [facility], POS DS,) Prior sleep studies: No CPAP Compliance Data - Data Reviewed with Patient Average duration of nightly device use: 6 hours 3 minutes Compliance rate %: 71 (33/45 days used) Current pressure setting (cmH2O): 4-15 (median 5.0, avg 7.0, max 8.0) Average residual AHI: 0.7 Central apnea: 0.0 Obstructive apnea: 0.5 Average large leak: 0.0 L/min Subjective Missed days of use due to: reports: mask issues (claustrophobia) Patient concerns: reports: mask discomfort, nasal congestion (has sinus issues), dry mouth, nose, throat (has dry mouth during the day). denies: aerophagia, air blowing in eyes, mask leak noise, condensation in mask/hose, epistaxis Observed to snore while using device: No Current pressure setting perceived as: comfortable On therapy, patient: reports: other (not feeling any difference). denies: drowsiness while driving Initial [place] Sleepiness Scale score: 8 (05/03/2022) Current [place] Sleepiness Scale score: 4 (07/27) Allergies and Home Medications Drug allergies reviewed: Yes (as listed) Home medication list reviewed: Yes (Flecainide 50 mg bid (for Afib)) Allergy and home medication list: Allergies latex Allergy (Verified 04/08/22 17:55) Rash Penicillins Allergy (Verified 04/08/22 17:55) Unknown meloxicam [From Mobic] Adverse Reaction (Verified 04/08/22 17:55) Cramps Review of Systems Review of systems same as previous: Yes (no changes) Physical Exam Vital signs obtained and entered by: RHIANNA STEPHENSON Blood Pressure: 136/92 Cuff size: regular Heart Rate: 64 O2 Saturation: 97 Height: 5 ft 4 in Weight: 256 lb 6 oz Body Mass Index: 43.9 BMI Classification: Morbidly Obese Impression and Plan 1. Obstructive Sleep Apnea-Hypopnea Syndrome, mild, with good treatment compliance and good apnea control. Patient has not really noticed a difference in her sleep and restfulness. She does not like using the CPAP and is still checking on getting an oral appliance. I gave her a name of a dentist that she may call and [place] to [place]. She will let me know if things changes. The patients pressure will be changed to autoCPAP 5-7 cmH20 to reflect pressure being used. Patient advised to contact me if pressure change is uncomfortable so that it can be adjusted. Goals for apnea control discussed. Patient's apnea severity and rationale for treatment to reduce apnea, improve sleep quality and reduce cardiovascular and cerebrovascular events was reviewed. I also reviewed the benefit of consistent device use of CPAP for arrhythmia and gastric reflux. * Change auto CPAP pressure to 5-7 cmH2O * Look into Oral Appliance * Notify me if snoring with mask or feeling that the pressure is too much or too little * Attempt to lose weight * Call this office if any problems using CPAP * Return for follow up in 1-2 months, or sooner if concerns arise Counseling Topics: Spare mask, Weight loss health impact Visit Type: In Office Time Spent with Patient (minutes): 21 Provider Statement: I spent 100% of the Face to Face Visit with the patient with greater than 50% spent counseling the patient and coordination of care.
== END 2022-08-09 10:22 | disposition home or self-care (01) ==
LOC: SC 10:21
PROVIDERS: ATTEND Nurse Practitioner Family
DX: G47.33 Obstructive sleep apnea (adult) (pediatric) (principal); E66.01 Morbid (severe) obesity due to excess calories; Z68.41 Body mass index [BMI] 40.0-44.9, adult
CPT/HCPCS: 99212; 99213

== ENCOUNTER 2022-09-20 11:43 | Outpatient (CLI) | payer BC ==
--- NOTE | 2022-09-20 11:31 | SLEEP CARE CONSULTATION ---
Information from patient questionnaire entered by Isi Guerra. I have reviewed and concur with the information entered by Isi Guerra. This document represents the service I personally performed and the decisions made by me, Dee Vilchis ARNP. History of Present Illness Service Date and Time: 09/20/2022 1100 Previous diagnosis: Mild, Obstructive Sleep Apnea-Hypopnea Syndrome AHI: 9.1 (in 2021) Reason for follow up: other (SIX WEEK F/U ) Equipment type: CPAP (RESMED) Equipment obtained from: Other ([facility]; getting supplies) Mask style: Nasal pillows (Dayton II) Backup mask available: Yes (old mask) Last cushion change: yesterday Prior sleep studies: No Type of Sleep Study: Home sleep study (F/U HST, 05/16/2022 [facility], POS DS,) HPI additional information: GEOVANY SHAH was diagnosed to have mild, AHI 9.1, obstructive sleep apnea- hypopnea syndrome and returns via video telehealth visit today for CPAP therapy six week with pressure change follow-up. Sleep Study - Results Type of Sleep Study: Home sleep study (F/U HST, 05/16/2022 [facility], POS DS,) Prior sleep studies: No CPAP Compliance Data - Data Reviewed with Patient Average duration of nightly device use: 6 HRS, 12 MIN Compliance rate %: 87 (08/19/2022-09/17/2022; /30 days used) Current pressure setting (cmH2O): 5-7 Average residual AHI: 0.4 Central apnea: 0.0 Obstructive apnea: 0.1 Average large leak: 0.6 lpm Subjective Missed days of use due to: reports: illness, other (power outage) Patient concerns: reports: mask discomfort (get a sore in nose from nasal pillow), condensation in mask/hose (keeps bedroom cold; she has adjusted and is better), nasal congestion (due to sinus issues), other (tube cold because it is under covers with her). denies: aerophagia, air blowing in eyes, mask leak noise, dry mouth, nose, throat, epistaxis Observed to snore while using device: No Current pressure setting perceived as: comfortable On therapy, patient: reports: sleeping better (sleep more soundly), awakening more refreshed (very first thing in morning), more rested overall. denies: being more awake and alert during the day, drowsiness while driving Initial [place] Sleepiness Scale score: 8 (05/03/2022) Current [place] Sleepiness Scale score: 8 Allergies and Home Medications Drug allergies reviewed: Yes (penicillin, meloxicam, latex) Home medication list reviewed: Yes (flecainide 50 mg twice a day for Afib) Review of Systems Review of systems same as previous: Yes (no changes) Physical Exam Vital signs obtained and entered by: ISI Razo MA Height: 5 ft 4 in (PER PT) Weight: 255 lb (PER PT) Body Mass Index: 43.7 BMI Classification: Morbidly Obese Impression and Plan 1. Obstructive Sleep Apnea-Hypopnea Syndrome, mild, with good treatment compliance and good apnea control. On CPAP therapy, the patient has better sleep quality and is more rested overall. Patient has significant improvement of their sleep apnea and are satisfied with current CPAP therapy. Patient has had some condensation in her tubing because she keeps her bedroom cold. She has been putting the tubing under the covers with her but when it touches her it is cold. I advised her that she can get a fabric cover for the tubing to help keep the tubing more warm and reduce condensation. She has adjusted her heated hose so the condensation has improved. She does get nasal congestion but states she has chronic sinus issues with drainage and does not feel this is due to the CPAP. Patient's apnea severity and rationale for treatment to reduce apnea, improve sleep quality and reduce cardiovascular and cerebrovascular events was reviewed. I also reviewed the benefit of consistent device use of CPAP for arrhythmia and gastric reflux. 2. Obesity, unspecified. Currently patients BMI is 43.7. Obesity increases the risk of apnea, CPAP pressure requirements and overall health risks especially cardiovascular and diabetes. Thus patient is advised to continue to try to lose weight. * Continue auto CPAP pressure at 5-7 cmH2O * Notify me if snoring with mask or feeling that the pressure is too much or too little * Attempt to lose weight * Call this office if any problems using CPAP * Return for follow up in 3 months, or sooner if concerns arise Counseling Topics: Spare mask, Weight loss health impact Visit Type: Telehealth Video Video Type: Doximity Patient Location: Work Location of Provider: Office Patient agrees and consents to this telehealth visit type: Yes Patient agrees to have their insurance billed: Yes Time Spent with Patient (minutes): 16 Provider Statement: I spent 100% of the Telehealth Video Call with the patient with greater than 50% spent counseling the patient and coordination of care.
== END 2022-09-20 11:44 | disposition home or self-care (01) ==
LOC: SC 11:43
PROVIDERS: ATTEND Nurse Practitioner Family
DX: G47.33 Obstructive sleep apnea (adult) (pediatric) (principal); E66.01 Morbid (severe) obesity due to excess calories; Z68.43 Body mass index [BMI] 50.0-59.9, adult

== ENCOUNTER 2022-12-19 11:39 | Outpatient (CLI) | payer BC ==
--- NOTE | 2022-12-19 09:26 | SLEEP CARE CONSULTATION ---
Information from patient questionnaire entered by Isi Guerra. I have reviewed and concur with the information entered by Isi Guerra. This document represents the service I personally performed and the decisions made by , Dee Vilchis ARNP. History of Present Illness Service Date and Time: 12/19/2022 0900 Previous diagnosis: Mild, Obstructive Sleep Apnea-Hypopnea Syndrome AHI: 9.1 (in 2021) Reason for follow up: three month (F/U) Equipment type: CPAP (RESMED Airsense 11 s/u 06/2022) Equipment obtained from: Other ([facility]; getting supplies as needed) Mask style: Nasal pillows ([place] II) Backup mask available: Yes (old mask) Last cushion change: every 2 weeks Prior sleep studies: No Type of Sleep Study: Home sleep study (F/U HST, 05/16/2022 [facility], POS DS,) HPI additional information: GEOVANY SHAH was diagnosed to have mild, AHI 9.1, obstructive sleep apnea- hypopnea syndrome and returns via video telehealth visit today for CPAP therapy three month follow-up. Sleep Study - Results Type of Sleep Study: Home sleep study (F/U HST, 05/16/2022 [facility], POS DS,) Prior sleep studies: No CPAP Compliance Data - Data Reviewed with Patient Average duration of nightly device use: 6 HRS 7 MIN Compliance rate %: 88 (11/08/21-12/16/22; 82/90 days used) Current pressure setting (cmH2O): 5-7 Average residual AHI: 0.5 Central apnea: 0.0 Obstructive apnea: 0.3 Average large leak: 0.3 Subjective Missed days of use due to: reports: mask issues (sores in nares from pillows) Patient concerns: reports: mask discomfort (soreness inside nares, may need smaller size cushion), condensation in mask/hose, nasal congestion, dry mouth, nose, throat. denies: aerophagia, air blowing in eyes, mask leak noise, epistaxis Observed to snore while using device: No Current pressure setting perceived as: comfortable On therapy, patient: reports: being more awake and alert during the day (sometimes). denies: drowsiness while driving Initial [place] Sleepiness Scale score: 8 (05/03/2022) Current [place] Sleepiness Scale score: 7 (12/19/22) Allergies and Home Medications Drug allergies reviewed: Yes (as listed in EMR) Home medication list reviewed: Yes (no changes) Review of Systems Review of systems same as previous: Yes (no changes) Physical Exam Vital signs obtained and entered by: VIA PHONE ISI Razo MA Height: 5 ft 4 in (PER PT) Weight: 248 lb (PER PT) Weight change since last visit: 13 lb loss Body Mass Index: 42.5 BMI Classification: Morbidly Obese Impression and Plan 1. Obstructive Sleep Apnea-Hypopnea Syndrome, mild, with good treatment compliance and good apnea control. Patient states she sometimes will feel more rested and have more energy during the day but other times is still getting drowsy at 10:00 in the morning. She continues to use her CPAP. The only nights she has not used her CPAP was because of sores in her nostrils from her nasal pillows mask. She is using a medium cushion and has found that a small cushion fits better with less irritation. She was encouraged to order the smaller nasal pillows cushion when she orders more supplies and she agreed. She has also been experiencing some nasal congestion, dry mouth and condensation in the hose. She has covered the hose with a fabric covering and adjusted the humidity and heated hose. She feels she has it where she can tolerate it with a little water to drink at her bedside. She also applies moisturizer to her nose as needed. Patient's apnea severity and rationale for treatment to reduce apnea, improve sleep quality and reduce cardiovascular and cerebrovascular events was reviewed. I also reviewed the benefit of consistent device use of CPAP for arrhythmia and gastric reflux. 2. Obesity, unspecified. Currently patients BMI is 42.5. Patient has been trying to lose weight and lost about 13 pounds. Obesity increases the risk of apnea, CPAP pressure requirements and overall health risks especially cardiovascular and diabetes. Thus patient is advised to continue to try to lose weight. * Continue auto CPAP pressure at 5-7 cmH2O * Notify me if snoring with mask or feeling that the pressure is too much or too little * Attempt to lose weight * Call this office if any problems using CPAP * Return for follow up in 1 year, or sooner if concerns arise Counseling Topics: Spare mask, Weight loss health impact Visit Type: Telehealth Video Video Type: Doximity Patient Location: Work Location of Provider: Office Patient agrees and consents to this telehealth visit type: Yes Patient agrees to have their insurance billed: Yes Time Spent with Patient (minutes): 23 Provider Statement: I spent 100% of the Telehealth Video Call with the patient with greater than 50% spent counseling the patient and coordination of care.
== END 2022-12-19 11:40 | disposition home or self-care (01) ==
LOC: SC 11:39
PROVIDERS: ATTEND Nurse Practitioner Family
DX: G47.33 Obstructive sleep apnea (adult) (pediatric) (principal); E66.01 Morbid (severe) obesity due to excess calories; Z68.41 Body mass index [BMI] 40.0-44.9, adult

== ENCOUNTER 2023-05-28 08:33 | Outpatient (CLI) | payer BC ==
[2023-05-28 08:45] LABS: BASOPHILS # (AUTO) 0.1 10^3/uL (0.0-0.1); BASOPHILS % (AUTO) 0.7 %; EOSINOPHILS # (AUTO) 0.2 10^3/uL (0.0-0.7); EOSINOPHILS % (AUTO) 2.4 %; HCT - HEMATOCRIT 40.4 % (37.0-47.0); HGB - HEMOGLOBIN 13.2 g/dL (12.0-16.0); LYMPHOCYTES # (AUTO) 1.8 10^3/uL (1.5-3.5); LYMPHOCYTES % (AUTO) 24.8 %; MEAN CORPUSCULAR HEMOGLOBIN 29.4 pg (27.0-31.0); MEAN CORPUSCULAR HGB CONC 32.7 g/dL (32.0-36.0); MEAN PLATELET VOLUME 9.2 fL (7.9-10.8); MONOCYTES # (AUTO) 0.6 10^3/uL (0.0-1.0); MONOCYTES % (AUTO) 8.3 %; NEUTROPHILS # (AUTO) 4.5 10^3/uL (1.5-6.6); NEUTROPHILS % (AUTO) 63.5 %; PLT - PLATELET COUNT 293 10^3/uL (130-450); RED BLOOD COUNT 4.49 10^6/uL (4.20-5.40); RED CELL DISTRIBUTION WIDTH 13.4 % (12.0-15.0); WHITE BLOOD COUNT 7.1 x10^3/uL (4.8-10.8)
[2023-05-28 09:03] LABS: ALBUMIN 4.5 g/dL (3.2-5.5); ALBUMIN/GLOBULIN RATIO 1.4 (1.0-2.2); ALKALINE PHOSPHATASE 85 IU/L (42-121); ALT ALANINE AMINOTRANSFERASE 15 IU/L (10-60); AST ASPARTATE AMINOTRANSFERASE 19 IU/L (10-42); BILIRUBIN,TOTAL 0.5 mg/dL (0.2-1.0); BUN - BLOOD UREA NITROGEN 16 mg/dL (6-20); CALCIUM 9.7 mg/dL (8.5-10.3); CARBON DIOXIDE - CO2 30 mmol/L (21-32); CHLORIDE 101 mmol/L (101-111); CHOL/HDL RATIO 3.1 (<4.4); CHOLESTEROL 211 mg/dL; CREATININE 0.7 mg/dL (0.6-1.3); GFR - MDRD 86 (>89); GLUCOSE 108 mg/dL (74-104); HDL CHOLESTEROL 68 mg/dL; LDL CHOLESTEROL,CALCULATED 119 mg/dL; LDL/HDL RATIO 1.8 (<4.4); SODIUM 137 mmol/L (135-145); TOTAL PROTEIN 7.8 g/dL (6.4-8.9); TRIGLYCERIDES 120 mg/dL (48-352); VLDL CHOLESTEROL 24 mg/dL
[2023-05-28 09:17] LABS: THYROID STIMULATING HORMONE 4.01 uIU/mL (0.34-5.60)
[2023-05-28 11:22] LABS: ESTIMATED AVERAGE GLUCOSE 126 mg/dL (70-100)
== END 2023-05-28 08:34 | disposition home or self-care (01) ==
LOC: LAB 08:33
PROVIDERS: ATTEND Physician Assistant Medical
DX: Z00.00 Encounter for general adult medical examination without abnormal findings (principal); R73.9 Hyperglycemia, unspecified; E03.9 Hypothyroidism, unspecified
CPT/HCPCS: 36415; 80053; 80061; 83036; 83721; 84443; 85025

== ENCOUNTER 2023-06-27 07:08 | Outpatient (CLI) | payer BC ==
--- NOTE | 2023-06-27 14:18 | XRAY Report ---
PROCEDURE: Lumbar Spine 2 View INDICATIONS: LUMBAR RADICULOPATHY TECHNIQUE: 2 views of the lumbar spine were acquired. COMPARISON: None. FINDINGS: Bones: 5 [id number] vertebrae are present. There is normal bony alignment. No vertebral body compression fractures. No suspicious bony lesions. Minimal foraminal narrowing at L5-S1. Soft tissues: Overlying bowel gas pattern is normal. No suspicious soft tissue calcifications. IMPRESSION: Minimal early degenerative change. Reviewed by: Lila Be MD on 06/27/2023 2:17 PM PDT Approved by: Lila Be MD on 06/27/2023 2:17 PM PDT Station ID: [id number]
== END 2023-06-27 07:09 | disposition home or self-care (01) ==
LOC: DI 07:08
PROVIDERS: ATTEND Physician Assistant Medical
DX: M47.26 Other spondylosis with radiculopathy, lumbar region (principal)

== ENCOUNTER 2023-08-31 14:46 | Outpatient (CLI) | payer BC ==
[2023-08-31 15:29] LABS: THYROID STIMULATING HORMONE 2.1 uIU/mL (0.34-5.60)
== END 2023-08-31 14:47 | disposition home or self-care (01) ==
LOC: LAB 14:46
PROVIDERS: ATTEND Internal Medicine Endocrinology, Diabetes & Metabolism
DX: E03.9 Hypothyroidism, unspecified (principal)
CPT/HCPCS: 36415; 84439; 84443

== ENCOUNTER 2023-10-22 07:30 | Outpatient (CLI) | payer BC ==
--- NOTE | 2023-10-22 09:34 | XRAY Report ---
PROCEDURE: Knee 2 View LT INDICATIONS: CONTUSION OF LEFT KNEE TECHNIQUE: 2 views of the knee(s) were acquired. COMPARISON: None. FINDINGS: Bones: No acute fractures or dislocations. No suspicious bony lesions. Moderate tricompartmental os teoarthrosis of the left knee with moderate medial femorotibial compartment joint space narrowing. Soft tissues: No knee joint effusion. No suspicious soft tissue calcifications or masses. IMPRESSION: No acute bony abnormality. Moderate tricompartmental osteoarthrosis of the left knee. If there is persistent clinical concern for a radiographically occult fracture, recommend immobilizat ion and repeat imaging in 10 to 14 days. Reviewed by: Robbie Lopez MD on 10/22/2023 9:32 AM PST Approved by: Robbie Lopez MD on 10/22/2023 9:32 AM PST Station ID: [id number]
== END 2023-10-22 07:45 | disposition home or self-care (01) ==
LOC: DI.N 07:30
PROVIDERS: ATTEND Nurse Practitioner
DX: S80.02XA Contusion of left knee, initial encounter (principal); M17.12 Unilateral primary osteoarthritis, left knee; E03.9 Hypothyroidism, unspecified
CPT/HCPCS: 36415; 84439; 84443

== ENCOUNTER 2023-10-22 09:59 | Outpatient (CLI) | payer BC ==
[2023-10-22 10:45] LABS: THYROID STIMULATING HORMONE 0.06 uIU/mL (0.34-5.60)
== END 2023-10-22 10:00 | disposition home or self-care (01) ==
LOC: LAB 09:59
PROVIDERS: ATTEND Internal Medicine Endocrinology, Diabetes & Metabolism
DX: E03.9 Hypothyroidism, unspecified (principal)
CPT/HCPCS: 36415; 84439; 84443

== ENCOUNTER 2023-12-28 15:12 | Outpatient (CLI) | payer BC ==
[2023-12-28 15:59] LABS: THYROID STIMULATING HORMONE 0.25 uIU/mL (0.34-5.60)
== END 2023-12-28 15:13 | disposition home or self-care (01) ==
LOC: LAB 15:12
PROVIDERS: ATTEND Internal Medicine Endocrinology, Diabetes & Metabolism
DX: E03.9 Hypothyroidism, unspecified (principal)
CPT/HCPCS: 36415; 84439; 84443

== ENCOUNTER 2024-02-21 08:30 | Outpatient (CLI) | payer BC ==
[2024-02-21 09:09] LABS: THYROID STIMULATING HORMONE 0.64 uIU/mL (0.34-5.60)
== END 2024-02-21 08:31 | disposition home or self-care (01) ==
LOC: LAB 08:30
PROVIDERS: ATTEND Internal Medicine Endocrinology, Diabetes & Metabolism
DX: E03.9 Hypothyroidism, unspecified (principal)
CPT/HCPCS: 36415; 84439; 84443

== ENCOUNTER 2024-05-07 07:42 | Outpatient (CLI) | payer BC ==
[2024-05-07 07:58] LABS: BASOPHILS % (AUTO) 0.5 %; EOSINOPHILS # (AUTO) 0.3 10^3/uL (0.0-0.7); EOSINOPHILS % (AUTO) 4.4 %; HCT - HEMATOCRIT 42.3 % (37.0-47.0); HGB - HEMOGLOBIN 13.2 g/dL (12.0-16.0); LYMPHOCYTES # (AUTO) 1.9 10^3/uL (1.5-3.5); LYMPHOCYTES % (AUTO) 24.8 %; MEAN CORPUSCULAR HGB CONC 31.2 g/dL (32.0-36.0); MEAN CORPUSCULAR VOLUME 89.6 fL (81.0-99.0); MEAN PLATELET VOLUME 9.5 fL (7.9-10.8); MONOCYTES # (AUTO) 0.6 10^3/uL (0.0-1.0); MONOCYTES % (AUTO) 7.5 %; NEUTROPHILS # (AUTO) 4.8 10^3/uL (1.5-6.6); NEUTROPHILS % (AUTO) 62.4 %; PLT - PLATELET COUNT 304 10^3/uL (130-450); RED BLOOD COUNT 4.72 10^6/uL (4.20-5.40); RED CELL DISTRIBUTION WIDTH 14.3 % (12.0-15.0); WHITE BLOOD COUNT 7.7 x10^3/uL (4.8-10.8)
[2024-05-07 08:17] LABS: ALBUMIN 4.4 g/dL (3.2-5.5); ALBUMIN/GLOBULIN RATIO 1.4 (1.0-2.2); ALKALINE PHOSPHATASE 86 IU/L (42-121); ALT ALANINE AMINOTRANSFERASE 15 IU/L (10-60); AST ASPARTATE AMINOTRANSFERASE 17 IU/L (10-42); BILIRUBIN,TOTAL 0.5 mg/dL (0.2-1.0); BUN - BLOOD UREA NITROGEN 14 mg/dL (6-20); CALCIUM 10.1 mg/dL (8.5-10.3); CARBON DIOXIDE - CO2 32 mmol/L (21-32); CHLORIDE 101 mmol/L (101-111); CHOL/HDL RATIO 3.3 (<4.4); CHOLESTEROL 223 mg/dL; CREATININE 0.7 mg/dL (0.6-1.3); GFR - MDRD 86 (>89); GLUCOSE 114 mg/dL (74-104); HDL CHOLESTEROL 68 mg/dL; LDL CHOLESTEROL,CALCULATED 125 mg/dL; LDL/HDL RATIO 1.8 (<4.4); POTASSIUM 4.2 mmol/L (3.5-4.5); SODIUM 137 mmol/L (135-145); TOTAL PROTEIN 7.6 g/dL (6.4-8.9); TRIGLYCERIDES 149 mg/dL (48-352); VLDL CHOLESTEROL 30 mg/dL
[2024-05-07 08:29] LABS: THYROID STIMULATING HORMONE 2.61 uIU/mL (0.34-5.60)
[2024-05-07 13:57] LABS: ESTIMATED AVERAGE GLUCOSE 111 mg/dL (70-100); HEMOGLOBIN A1c% 5.5 % (4.27-6.07)
== END 2024-05-07 07:43 | disposition home or self-care (01) ==
LOC: LAB 07:42
PROVIDERS: ATTEND Physician Assistant Medical
DX: Z00.00 Encounter for general adult medical examination without abnormal findings (principal); R73.9 Hyperglycemia, unspecified; E03.9 Hypothyroidism, unspecified
CPT/HCPCS: 36415; 80053; 80061; 83036; 83721; 84439; 84443; 84481; 85025

== ENCOUNTER 2024-05-28 09:17 | Outpatient (CLI) | payer BC ==
--- NOTE | 2024-05-29 09:13 | Mammography Report ---
BILATERAL DIGITAL SCREENING MAMMOGRAM 3D/2D: 05/28/2024 CLINICAL: Routine screening. Comparison is made to exams dated: 05/22/2023 mammogram, 05/11/2022 mammogram, and 01/10/2021 mammogram - [facility]. There are scattered areas of fibroglandular density in both breasts (category b / 25%-50% glandular t issue). No significant masses, calcifications, or other findings are seen in either breast. There has been no significant interval change. IMPRESSION: NEGATIVE There is no mammographic evidence of malignancy. A 1 year screening mammogram is recommended. Based on the Tyrer Cuzick model (a risk assessment model) the patient's lifetime risk is 10.3% and he r 10 year risk is 4.0%. According to the ACR, ACS, and NCCN guidelines, an annual breast MRI exam jf ng with mammogram is recommended if the patient's lifetime risk is 20% or greater. This exam was interpreted at Station ID: [id number]. NOTE: For mammograms, a report in lay terms will be sent to the patient. Approximately 15% of breast malignancies will not be visualized mammographically. In the management of a palpable breast mass, a negative mammogram must not discourage biopsy of a clinically suspicious lesion. Electronically Signed By: Horacio [email or web address]:05/28/2024 11:56:46 letter sent: No_Letter ACR BI-RADS Category 1: Negative [id number] PARENCHYMAL PATTERN: (A) - The breast(s) demonstrate(s) scattered fibroglandular densities. BI-RADS CATEGORY: (1) - 1 RECOMMENDATION: (ANNUAL) - Recommend routine annual screening mammography. [id number] 1 year screening LATERALITY: (B)
== END 2024-05-28 09:18 | disposition home or self-care (01) ==
LOC: DI.N 09:17
DX: Z12.31 Encounter for screening mammogram for malignant neoplasm of breast (principal); R92.323 Mammographic fibroglandular density, bilateral breasts